=== PATIENT | female | born 1965 | race American Indian/Alaskan Native ===

== ENCOUNTER 2017-02-19 17:06 | Emergency (ER) | payer OTHER ==
[2017-02-19 18:16] VITALS: BP 174/100
--- NOTE | 2017-02-19 18:18 | Emergency Department Report ---
Entered by TANO SUAREZ, acting as scribe for LAVON MALONEY NP. Chief Complaint: Extremity Injury, Lower Stated Complaint: RT LEG BLOOD CLOT Time Seen by Provider: 02/19/17 18:12 - HPI History of Present Illness: 51 y/o female with Hx of DM and neuropathy, presents with right lower extremity pain that started 1 week ago. Pt notes seeing PCP last week. Pt denies fever, chest pain or SOB. Pt is not ambulatory. She denies ETOH, tobacco or drug use. - ROS Review of Systems: +right leg pain -chest pain -SOB -fever - Exam Vital Signs: Vital Signs 02/19/17 18:12 Temperature 97.4 F L Pulse Rate 77 Respiratory 18 Rate Blood Pressure 174/100 O2 Sat by Pulse 100 Oximetry Physical Exam: Extremity: diffuse tenderness to anterior and posterior lower right extremity constitutional: morbidly obese MSE screening note: Focused history and physical exam performed. Due to findings the following was ordered: labs ED Disposition for MSE Condition: Stable This documentation as recorded by the scribe,TANO SUAREZ,accurately reflects the service I personally performed and the decisions made by HAIDER medina TRACY M, NP.
[2017-02-19 18:34] LABS: Basophils % (Auto) 0.4 % (0.0-1.8); Hematocrit 36.3 % (30.3-42.9); Hemoglobin 12.2 gm/dl (10.1-14.3); Mean Corpuscular HGB Conc 34 % (30-34); Mean Corpuscular Hemoglobin 27 pg (28-32); Mean Corpuscular Volume 80 fl (79-97); Platelet Count 229 K/mm3 (140-440); Red Blood Count 4.52 M/mm3 (3.65-5.03); Red Cell Distribution Width 14.6 % (13.2-15.2); White Blood Count 8.2 K/mm3 (4.5-11.0)
[2017-02-19 19:00] LABS: Alanine Aminotransferase 14 units/L (7-56); Albumin 3.9 g/dL (3.9-5); Albumin/Globulin Ratio 0.9 %; Alkaline Phosphatase 105 units/L (35-129); Anion Gap 14 mmol/L; Blood Urea Nitrogen 15 mg/dL (7-17); Calcium 9.4 mg/dL (8.4-10.2); Carbon Dioxide 30 mmol/L (22-30); Chloride 97.6 mmol/L (98-107); Glucose 180 mg/dL (65-100); Potassium 4.2 mmol/L (3.6-5.0); Sodium 137 mmol/L (137-145); Total Protein 8.4 g/dL (6.3-8.2)
== END 2017-02-20 02:15 | disposition left against medical advice (07) ==
LOC: ED 17:06
DX: Z53.21 Procedure and treatment not carried out due to patient leaving prior to being seen by health care provider (principal)
CPT/HCPCS: 36415; 80053; 83880; 85025